=== PATIENT | female | born 1975 | race Caucasian/White ===

== ENCOUNTER → 2017-06-10 17:41 | Outpatient (CLI) | payer OTHER ==
[2015-11-12 05:55] VITALS: BMI 37.1
[~2017-06-10 17:41] MED LIST: IBUPROFEN600 MG PO; PERCOCET 10/3251 TA1 PO; PRENAVITE1 TAB PO
== END | disposition home or self-care (01) ==
LOC: D.MAMMO 13:00
DX: Z12.31 Encounter for screening mammogram for malignant neoplasm of breast (principal)